=== PATIENT | female | born 1995 | race Caucasian/White ===

== ENCOUNTER 2017-11-06 17:27 | Emergency (ER) | payer SELFPAY ==
[2017-11-06 18:05] LABS: Bilirubin Negative (Negative); Blood, Urine Small (Negative); Glucose, Urine (Dipstick) Negative (Negative); Ketone, Urine Negative (Negative); Nitrite Positive (Negative); Protein, Urine (Dipstick) Negative (Neg-Trace); Urobilinogen 0.2 mg/dL (0.2-1.0)
[2017-11-06 18:09] LABS: Bacteria/HPF 4+ HPF (None Seen); WBC/HPF 21-50 HPF (0-3)
[2017-11-06] MEDS ORDERED: Lidocaine 1% PF 5 ML VIAL ONE (18:21)
[2017-11-06] MEDS ORDERED: cefTRIAXone\\ROCEPHIN 1 GM VIAL ONE (18:21)
== END 2017-11-06 19:12 | disposition home or self-care (01) ==
LOC: SCSER 17:27
DX: N39.0 Urinary tract infection, site not specified (principal); F17.210 Nicotine dependence, cigarettes, uncomplicated
CPT/HCPCS: 81003; 81015; 81025; 87077; 87086; 87186; 96372; J0696; J2001

== ENCOUNTER 2024-11-11 19:36 | Emergency (ER) | payer SELFPAY ==
[2024-11-11] MEDS ORDERED: Ketorolac Tromethamine 30 MG (1 mL) VIAL ONE (21:09)
[2024-11-11] MEDS ORDERED: Orphenadrine Citrate 60 MG/2 ML VIAL ONE (21:10)
== END 2024-11-11 22:11 | disposition home or self-care (01) ==
LOC: ERS 19:36
DX: M54.40 Lumbago with sciatica, unspecified side (principal); F17.210 Nicotine dependence, cigarettes, uncomplicated
CPT/HCPCS: 96372; 99282; J1885; J2360

== ENCOUNTER 2024-12-08 18:30 | Emergency (ER) | payer SELFPAY ==
[2024-12-08] MEDS ORDERED: Dexamethasone 10 MG/ML VIAL ONE (19:35)
[2024-12-08] MEDS ORDERED: Ibuprofen 800 MG TAB ONE (19:36)
== END 2024-12-08 22:22 | disposition home or self-care (01) ==
LOC: ERS 18:30
DX: B34.9 Viral infection, unspecified (principal); R11.10 Vomiting, unspecified; F17.290 Nicotine dependence, other tobacco product, uncomplicated
CPT/HCPCS: 71045; 87428; J1100